=== PATIENT | female | born 1980 | race Caucasian/White ===

== ENCOUNTER 2016-12-12 19:42 | Emergency (ER) | payer BC, OTHER ==
[2016-12-12 19:42] VITALS: BMI 25.0
[2016-12-12 20:10] VITALS: TEMP 98.8
[2016-12-12] MEDS: METOCLOPRAMIDE 10 MG TAB PO ONE (20:24)
[2016-12-12] MEDS: DIPHENHYDRAMINE 25 MG CAP PO ONE (20:25)
[2016-12-12] MEDS: DEXAMETHASONE PF 10 MG/1 ML VIAL IM ONE (20:26)
[2016-12-12] MEDS: KETOROLAC TROMETHAMINE 60 MG/2 ML SDV IM ONE (20:26)
--- NOTE | 2016-12-12 20:33 | EDPRACDOC ---
- General Information Chief Complaint: Headache Stated Complaint: HEADACHE Time Seen by Provider: 12/12/16 20:10 Information Source: Patient Mode Of Arrival: Car Allergies/Adverse Reactions: Allergies Allergy/AdvReac Type Severity Reaction Status Date / Time hydrocodone [Hydrocodone] Allergy Intermediate Unknown/See Verified 12/12/16 20: 08 Comments - History of Present Illness Onset: SUNDAY HPI: PT PRESENTS FOR PERSISTENT HEADACHE THAT HAS BEEN ONGOING SINCE SUNDAY. PT HAS PMH OF MIGRAINES. Location: Reports: Generalized Pain Quality: Reports: Moderate Modifying Factors: improves with: Exposure to light Relevant History of: Reports: Known Headache disorder Associated Signs and Symptoms: Reports: Occasional Headache, Nausea/Vomiting, Vision Changes. Denies: Fever/Chills, Stiff Neck ED Past Medical History - History Reviewed Yes Nurses notes reviewed and agree except as marked - Patient Medical History Cardiac History: Reports: Hypertension GI/ History: Denies: Urinary Tract Infection Psychological History: Denies: Depression Surgical History: Denies: Hysterectomy - Social Medical History Smoking Status: Never smoker EDM Review of Systems - Review of Systems ROS Negative Except as Marked: Yes All systems reviewed and were negative except as marked - Physical Exam Constitutional: Alert Oriented to: Time, Person, Place Last recorded Vital Signs: Last Vital Signs Temp 98.8 F 12/12/16 20:08 Pulse 91 12/12/16 20:08 Resp 18 12/12/16 20:08 BP 133/93 12/12/16 20:08 Pulse Ox 97 12/12/16 20:08 Oxygen Pulse Oxygen Saturation 97 O2 Device Room Air Oxygen Flow Rate Fraction of Inspired Oxygen ( FIO2) - HEENT Head: Normal ( normocephalic) Eye Exam: Normal (PERRL, EOMI, Sclera white) Oropharynx: Normal (Pharynx:Moist without exudate,Gums-no swelling) Tympanic Membrane: Normal Nose: No Symptoms Reported (septum midline) Neck: Normal (FROM, trachea at midline) - Respiratory/Cardiovascular Respiratory: Normal - CTA (BBS clear to auscultation without adventitious sounds ) Cardiovascular: Normal (RRR without murmur, gallop or rub) - GI Auscultation: Normal (NABS) Palpation: Normal (Soft,No rebound or guarding, non distended) Tenderness: Non tender Simpson's Sign: Negative Rectal Exam: Deferred - Musculoskeletal Back: Normal (Non-Tender) Extremities: Normal (Normal tone, Pulses 2+ No cyanosis or edema, FROM) - Integumentary Skin: Normal, Warm, Dry Lymphatics: Normal (no adenopathy) - Neurologic Memory Impaired: Normal Motor Function: Normal (Normal tone, Pulses 2+ No cyanosis or edema, FROM) Cranial Nerve: Normal (CN II-X11 intact sensation, strength 5/5) Cerebellar: Normal Mood Description: Normal Perception: Normal - Differential Diagnosis Migraine Decision Time to Discharge: 21:10 - Departure Disposition: Home Condition: Stable Final Diagnosis: Migraine Instructions: Migraine Headache (ED) Education/Counseling Given To: Patient Education/Counseling Given Regarding: Diagnosis, Treatment, Prognosis, Follow Up Referrals: Cristian Maxwell MD [Staff Physician] - One Week Additional Instructions: INCREASE FLUID INTAKE. FOLLOW UP WITH NEUROLOGIST NEXT WEEK. RETURN TO THE ED FOR WORSENING SYMPTOMS OR CONCERNS.
[2016-12-12] MEDS: HYDROmorphone 1 MG INJECTION IM ONE (21:14)
[2016-12-12 21:30] VITALS: BP 127/86; PULSE 84
== END 2016-12-12 21:17 | disposition home or self-care (01) ==
LOC: ED 19:42 → EDMC 21:17
DX: R51 Headache (principal); G43.909 Migraine, unspecified, not intractable, without status migrainosus
CPT/HCPCS: 87880; 96372; 99283; J1100; J1170; J1885; J3490